=== PATIENT | female | born 1945 | race Caucasian/White ===

== ENCOUNTER 2016-09-12 12:35 | Emergency (ER) | payer OTHER ==
[~2016-09-12] VITALS: Ht 162.6 cm; Wt 59.9 kg
[~2016-09-12 12:35] MED LIST: ANTIVERT/2525 MG PO; ASPI-COR81 M1 PO; CALCIUM CARBON PO; LIQUITEARS15 ML OU; WARFARIN4 MG PO; ZOSTAVAX
[2016-09-12 13:25] LABS: BASOPHIL % 0.6 % (0-2); PLATELET COUNT 227 x10^3mcL (130-400); RED CELL DISTRIBUTION WIDTH 12.8 % (11.5-14.5)
[2016-09-12 13:27] LABS: CALCIUM 8.8 mg/dL (8.5-10.1); CARBON DIOXIDE 25.5 mmol/L (21-32); CHLORIDE SERUM 108 mmol/L (98-107); CREATININE SERUM 0.9 mg/dL (0.6-1.0); GLUCOSE SERUM 94 mg/dL (74-106); POTASSIUM SERUM 4.6 mmol/L (3.5-5.1); SODIUM SERUM 143 mmol/L (136-145)
[2016-09-12 13:29] LABS: ALBUMIN 3.6 g/dL (3.4-5.0); ALKALINE PHOSPHATASE 79 U/L (46-116); ALT/SGPT 23 U/L (14-59); AST/SGOT 18 U/L (15-37); BILIRUBIN TOTAL 0.43 mg/dL (0.20-1.00); CHOLESTEROL 194 mg/dL (<200); LIPASE 126 IU/L (73-393); TOTAL PROTEIN, SERUM 7.4 g/dL (6.4-8.2); TRIGLYCERIDES 74 mg/dL (<150)
[2016-09-12 13:31] LABS: HDL CHOLESTEROL 65 mg/dL (40-60)
[2016-09-12 13:49] LABS: T3 TOTAL 0.86 ng/mL
[2016-09-12 14:07] LABS: FREE T4 1.05 ng/dL (0.76-1.46)
[2016-09-12 14:30] LABS: UA SPECIFIC GRAVITY <=1.005 (1.005-1.035); microscopic required? YES; urine erythrocyte 1+ (NEGATIVE)
[2016-09-12 17:41] VITALS: BP 143/85
== END 2016-09-12 17:41 | disposition short-term general hospital (02) ==
LOC: ED 12:35
PROVIDERS: Specialist
DX: I48.0 Paroxysmal atrial fibrillation (principal); I10 Essential (primary) hypertension; Z88.8 Allergy status to other drugs, medicaments and biological substances
CPT/HCPCS: 83880; 84439; J3490; J7030; Q0092